=== PATIENT | female | born 1925 | race Caucasian/White ===

== ENCOUNTER 2017-01-11 12:23 | Observation (INO) | payer MEDICARE, BC ==
[2017-01-11 12:56] LABS: Hematocrit 46.8 % (37.0-47.0); Hemoglobin 15.8 gm/dL (12.5-16.0); Mean Cell Volume 92.3 fl (78-100); Mean Corpuscular Hemoglobin 31.2 pg (27-31); Mean Corpuscular Hgb Conc 33.8 g/dl (32-36); Neutrophil # 6.7 K/mm3 (1.3-6.0); Neutrophil % 66.9 % (42-75.0); Platelet Count 257 K/mm3 (150-450); Red Blood Count 5.07 M/mm3 (4.2-5.4); Red Cell Distribution Width 13.4 % (11.5-14.0)
[2017-01-11 13:08] LABS: Anion Gap 13.8 mmol/L (6.8-13.8); BUN/Creatinine Ratio 21.4 (9.0-21.6); Bilirubin, Total 0.7 mg/dL (0.0-1.1); Ca. Corrected For Albumin 9.5 mg/dL (8.4-10.2); Calcium * 9.8 mg/dL (7.9-10.9); Carbon Dioxide 28.2 mmol/L (24-32.6); Total Protein 8.3 gm/dL (6.2-8.2)
[2017-01-11 13:54] LABS: Urine Bilirubin Negative (NEGATIVE); Urine Blood Negative /ul (NEGATIVE); Urine Ketone 5 mg/dL (NEGATIVE); Urine Nitrite Negative (NEGATIVE); Urine Protein Negative (NEGATIVE); Urine Urobilinogen Normal (NORMAL)
[2017-01-11 14:04] LABS: Urine Appearance Clear; Urine Bacteria TRACE; Urine Color Yellow; Urine RBC TRACE /hpf (0-5); Urine WBC 0-5 /hpf (0-5)
[2017-01-11] MEDS ORDERED: NORMAL SALINE 1,000 ML IV ONE (14:26)
[2017-01-11 14:43] LABS: Troponin I Less than 0.017 ng/ml (0.00-0.10)
[2017-01-11 14:49] LABS: CK Total * 117 U/L (0-259)
--- NOTE | 2017-01-11 14:50 | ERNOTE ---
Medical Problem HPI - General Chief Complaint: General Assessment Time Seen by Provider: 01/11/17 12:25 Source: patient, family - history per daughter as well Exam Limitations: no limitations - Immun/Allergies/Home Medications Immunizations: IMMUNIZATION HX Immunizations Up to Date Yes History of Influenza Vaccine Yes Hx Pneumococcal Vaccination Yes Allergies/Adverse Reactions: Allergies amoxicillin [Amoxicillin] Allergy (Verified 01/11/17 12:56) brimonidine Allergy (Verified 01/11/17 12:56) dorzolamide [Dorzolamide] Allergy (Verified 01/11/17 12:56) Penicillins Allergy (Verified 01/11/17 12:56) Home Medications: HOME MEDICATIONS Aspirin [Aspirin Enteric Coated] 81 mg PO DAILY 08/29/14 [Last Taken Unknown] Calcium Carbonate [Caltrate 600] 1,200 mg PO DAILY 08/29/14 [Last Taken Unknown] Hydrochlorothiazide [Hydrodiuril] 25 mg PO Q48H 08/29/14 [Last Taken Unknown] Potassium Chloride [Klor-Con 10] 10 meq PO DAILY 08/29/14 [Last Taken Unknown] Preservision Areds Tablet 2 cap PO DAILY 08/29/14 [Last Taken Unknown] Timolol 1 drop OP DAILY 08/29/14 [Last Taken Unknown] Travatan Z 1 drop OP DAILY 08/29/14 [Last Taken Unknown] - History of Present History Narrative: pt had cold symptoms last week however this week she feels very very tired. She presented to the office of Dr. Coy this morning where a urine was collected however she was so lethargic and she had a rapid heart rate she was sent to the emergency department. When the patient arrived to the emergency room she had atrial fibrillation and felt weak. She denied any shortness of breath cough congestion however she did state that she had occasional dysuria over the past week. She also had frequent urination over the past 24 hours. Review of Systems - Review of Systems Constitutional: Present: weakness, fatigue, malaise EYE: Present: no symptoms reported ENT: Present: no symptoms reported Respiratory: Present: no symptoms reported Cardiology: Present: See HPI, other Gastrointestinal/Abdominal: Present: no symptoms reported Genitourinary: Present: See HPI Musculoskeletal: Present: no symptoms reported Skin: Present: no symptoms reported - Patient's Past Medical History Patient History - Medical: Anemia, Anxiety, Depression, GERD, Glaucoma, Osteoporosis Patient History - Cardiac/Respiratory: Hypertension Patient History - Cancer: No Hx of Cancer Patient History - Surgical Procedures: Appendectomy, Colonoscopy, , Hysterectomy, Total Hip Replacement Patient History - Other: None LMP (females 10-50): Menopausal - Social History Living Situations: home Abuse History: No History of abuse Psych History: Hx of Anxiety Smoking Status: Never smoker Alcohol Use: none Drug Use: none - Immunizations Immunizations Up to Date: Yes Hx Pneumococcal Vaccination: Yes History of Influenza Vaccine: Yes Physical Exam - Physical Exam General Appearance: Present: wd/wn, no apparent distress Head Exam: Present: normal inspection, no evidence of injury Neck: Present: normal inspection, nontender Respiratory: Present: no respiratory distress, normal breath sounds, no accessory muscle use, chest nontender, lungs clear Cardiovascular/Chest: Present: irregularly irregular, other - initially patient had an irregular heart rate had atrial flutter at a rapid ventricular response however prior to the second EKG within the following 5 minutes the patient converted into sinus rhythm. And has remained in sinus rhythm since. Gastrointestinal/Abdominal: Present: normal bowel sounds, nontender, nondistended, soft, no organomegaly Extremity Exam: Present: normal inspection, normal range of motion Neurological Exam: Present: alert, oriented, normal mood/affect, no motor/ sensory deficits ED Progress - Results and Orders Patient's Lab Results:: I have reviewed the patient's lab results. - Vital Signs Patient's Vital Signs:: I have reviewed the patient's vital signs. Vital Signs: Vital Signs 01/11/17 01/11/17 01/11/17 12:34 12:51 13:05 Temperature 36.3 C L Pulse Rate 142 H 146 H Respiratory 16 23 H Rate Blood Pressure 133/74 94/75 154/75 O2 Sat by Pulse 91 100 100 Oximetry 01/11/17 01/11/17 01/11/17 13:30 13:45 14:00 Temperature Pulse Rate 135 H 146 H 72 Respiratory 17 26 H 25 H Rate Blood Pressure 101/85 138/72 135/60 O2 Sat by Pulse 95 Oximetry 01/11/17 01/11/17 01/11/17 14:15 14:30 14:41 Temperature Pulse Rate 77 71 75 Respiratory 26 H 21 H 16 Rate Blood Pressure 144/46 148/86 O2 Sat by Pulse Oximetry - X-Ray X-Ray #1 X-Ray: chest - Progress/Reassessment Chief Complaint: General Assessment Plan - Plan Plan: This patient has new onset atrial fibrillation in addition to the fact that she is very very weak. Her remainder of her tests are within normal limits this time due to patient's extreme weakness and inability to go home Dr. Barakat with consultation in regards to new onset atrial fibrillation which was paroxysmal, and patient's continued weakness and patient will be admitted for weakness. Departure - Departure Clinical Impression: New onset atrial fibrillation, Weakness Disposition: [facility] Condition: Fair Referrals: Josue Coy MD [Primary Care Provider] -
[2017-01-11 15:30] LABS: TSH * 4.078 uIU/mL (0.358-3.74)
--- NOTE | 2017-01-11 16:08 | HP ---
Chief Complaint - Chief Complaint Date of Service: 01/11/17 Time of Service: 16:02 Chief Complaint: weakness History of Present Illness: 89-year-old white female was admitted because of weakness she was initially seen at the walk-in clinic complaining of weakness and urinary problem she was found out to be tachycardic so she was sent to the emergency room. At the emergency room she was found out to be in atrial fibrillation with rapid ventricular response she converted spontaneously to normal sinus rhythm. She was given 1 L of IV saline by the emergency room. - Patient's Past Medical History Patient History - Medical: Anemia, Anxiety, Depression, GERD, Glaucoma, Osteoporosis Patient History - Cardiac/Respiratory: Hypertension Patient History - Cancer: No Hx of Cancer Patient History - Surgical Procedures: Appendectomy, Colonoscopy, , Hysterectomy, Total Hip Replacement Patient History - Other: None LMP (females 10-50): Menopausal - Family History Mother Family History - Medical: Family History - Cardiac/Respiratory: No pertinent hx Father Family History - Medical: , No pertinent hx - Social History Living Situations: other Abuse History: No History of abuse Psych History: Hx of Anxiety Smoking Status: Never smoker Have you smoked in the past 12 months: No Do you dip or chew tobacco: No Alcohol Use: none Drug Use: none - Immunizations Immunizations Up to Date: Yes Hx Pneumococcal Vaccination: Yes History of Influenza Vaccine: Yes Review Of Systems (GEN) - Review of Systems EENTM: Present: No Symptoms Reported Respiratory: Present: No Symptoms Reported Cardiac: Present: No Symptoms Reported Abdominal: Present: No Symptoms Reported Genitourinary: Present: Frequency Musculoskeletal: Present: No Symptoms Reported Neurological: Present: Weakness Skin: Present: No Symptoms Reported Immunizations: IMMUNIZATION HX Immunizations Up to Date Yes History of Influenza Vaccine Yes Hx Pneumococcal Vaccination Yes Allergies/Adverse Reactions: Allergies Allergy/AdvReac Type Severity Reaction Status Date / Time amoxicillin [Amoxicillin] Allergy Verified 01/11/17 12:56 brimonidine Allergy Verified 01/11/17 12:56 dorzolamide [Dorzolamide] Allergy Verified 01/11/17 12:56 Penicillins Allergy Verified 01/11/17 12:56 Home Medications: HOME MEDICATIONS Aspirin [Aspirin Enteric Coated] 81 mg PO DAILY 08/29/14 [Last Taken Unknown] Calcium Carbonate [Caltrate 600] 1,200 mg PO DAILY 08/29/14 [Last Taken Unknown] Hydrochlorothiazide [Hydrodiuril] 25 mg PO Q48H 08/29/14 [Last Taken Unknown] Potassium Chloride [Klor-Con 10] 10 meq PO DAILY 08/29/14 [Last Taken Unknown] Preservision Areds Tablet 2 cap PO DAILY 08/29/14 [Last Taken Unknown] Timolol 1 drop OP DAILY 08/29/14 [Last Taken Unknown] Travatan Z 1 drop OP DAILY 08/29/14 [Last Taken Unknown] Exam - Exam Vital Signs: Vital Signs - Last Taken Temp 36.5 C 01/11/17 15:18 Pulse 87 01/11/17 15:18 Resp 20 01/11/17 15:18 BP 158/64 01/11/17 15:18 Pulse Ox 99 01/11/17 15:18 Constitutional: Present: Alert, Oriented x3, Cooperative ENT Exam: Present: normal ENT inspection Neck: Present: full range of motion, normal inspection Back Exam: Present: normal inspection Respiratory: Present: chest non-tender, lungs clear, normal breath sounds Cardiovascular/Chest: Present: normal peripheral pulses, regular rate, rhythm, no chest tenderness, systolic murmur Abdomen: Present: Normal bowel sounds, soft, nontender /Rectal: Present: Exam deferred Extremity: Present: normal range of motion, no pedal edema Skin Exam: Present: normal color Neurologic: Present: brim stiffener II-XII nml as tested Appearance: Present: appropriate appearance Diagnostic Studies: Laboratory Results WBC 10.0 K/mm3 (4.0-10.5) 01/11/17 12:52 RBC 5.07 M/mm3 (4.2-5.4) 01/11/17 12:52 Hgb 15.8 gm/dL (12.5-16.0) 01/11/17 12:52 Hct 46.8 % (37.0-47.0) 01/11/17 12:52 MCV 92.3 fl (78-100) 01/11/17 12:52 MCH 31.2 pg (27-31) H 01/11/17 12:52 MCHC 33.8 g/dl (32-36) 01/11/17 12:52 RDW 13.4 % (11.5-14.0) 01/11/17 12:52 Plt Count 257 K/mm3 (150-450) 01/11/17 12:52 MPV 9.0 fl (6.0-9.5) 01/11/17 12:52 Immature Gran % (Auto) 0.30 % (0.001-0.429) 01/11/17 12:52 Immature Gran # (Auto) 0.03 K/mm3 (0.000-0.0310) 01/11/17 12:52 Neutrophils % 66.9 % (42-75.0) 01/11/17 12:52 Lymphocytes % 18.4 % (20-51) L 01/11/17 12:52 Monocytes % 9.7 % (0.0-9) H 01/11/17 12:52 Eosinophils % 3.8 % (0.0-3.0) H 01/11/17 12:52 Basophils % 0.9 % (0.0-1.0) 01/11/17 12:52 Nucleated RBC % 0.0 k/mm3 (0-1) 01/11/17 12:52 Neutrophils # 6.7 K/mm3 (1.3-6.0) H 01/11/17 12:52 Lymphocytes # 1.8 k/mm3 (1.5-3.5) 01/11/17 12:52 Monocytes # 1.0 k/mm3 (0.0-1.0) 01/11/17 12:52 Eosinophils # 0.4 k/mm3 (0.0-0.7) 01/11/17 12:52 Absolute Basophils 0.1 k/mm3 (0.0-0.1) 01/11/17 12:52 Sodium 139 mmol/L (132-142) 01/11/17 12:52 Plasma Sodium 139 mmol/L (130-142) 01/11/17 12:52 Potassium 4.0 mmol/L (3.4-4.6) 01/11/17 12:52 Chloride 101 mmol/L (97-106) 01/11/17 12:52 Carbon Dioxide 28.2 mmol/L (24-32.6) 01/11/17 12:52 Anion Gap 13.8 mmol/L (6.8-13.8) 01/11/17 12:52 BUN 21 mg/dL (3-23) 01/11/17 12:52 Creatinine 0.98 mg/dL (0.4-1.4) 01/11/17 12:52 Est GFR (Non-Af Amer) 57 mL/min (60-130) L 01/11/17 12:52 BUN/Creatinine Ratio 21.4 (9.0-21.6) 01/11/17 12:52 Random Glucose 112 mg/dL (70-110) H 01/11/17 12:52 Lactic Acid, Venous 1.4 mmol/L (0.4-1.9) 01/11/17 12:52 Calcium 9.8 mg/dL (7.9-10.9) 01/11/17 12:52 Calcium Adj for Albumin 9.5 mg/dL (8.4-10.2) 01/11/17 12:52 Total Bilirubin 0.7 mg/dL (0.0-1.1) 01/11/17 12:52 AST 27 U/L (0-48) 01/11/17 12:52 ALT 22 U/L (19-67) 01/11/17 12:52 Alkaline Phosphatase 101 U/L (50-170) 01/11/17 12:52 Creatine Kinase 117 U/L (0-259) 01/11/17 12:49 CK-MB (CK-2) 2.0 ng/mL (0.0-9.0) 01/11/17 12:49 Troponin I Less than 0.017 ng/ml (0.00-0.10) 01/11/17 12:49 B-Natriuretic Peptide 2469 pg/mL (5-550) H 01/11/17 12:49 Total Protein 8.3 gm/dL (6.2-8.2) H 01/11/17 12:52 Albumin 4.0 gm/dl (3.4-5.0) 01/11/17 12:52 Procalcitonin Less than 0.05 ng/mL (0.05-0.50) L 01/11/17 12:52 TSH 4.078 uIU/mL (0.358-3.74) H 01/11/17 12:49 Urine Color Yellow 01/11/17 12:05 Urine Appearance Clear 01/11/17 12:05 Urine pH 7.0 pH (5.0-7.0) 01/11/17 12:05 Ur Specific [place] 1.010 SP.GR. (1.005-1.010) 01/11/17 12:05 Urine Protein Negative mg/dL (NEGATIVE) 01/11/17 12:05 Urine Glucose (UA) Negative mg/dL (NEGATIVE) 01/11/17 12:05 Urine Ketones 5 mg/dL (NEGATIVE) 01/11/17 12:05 Urine Blood Negative /ul (NEGATIVE) 01/11/17 12:05 Urine Nitrate Negative (NEGATIVE) 01/11/17 12:05 Urine Bilirubin Negative mg/dl (NEGATIVE) 01/11/17 12:05 Urine Urobilinogen Normal EU/dl (NORMAL) 01/11/17 12:05 Ur Leukocyte Esterase Negative /ul (NEGATIVE) 01/11/17 12:05 Urine RBC Trace /hpf (0-5) 01/11/17 12:05 Urine WBC 0-5 /hpf (0-5) 01/11/17 12:05 Ur Epithelial Cells Trace /hpf (0-5) 01/11/17 12:05 Urine Bacteria Trace (NONE) 01/11/17 12:05 Urine Culture Comments Culture to follow 01/11/17 12:05 Assessment/Plan - Assessment/Plan (1) New onset atrial fibrillation Assessment: She will be started on Coreg 6.25 mg twice a day for rate control We'll repeat echocardiogram because of aortic stenosis and congestive heart failure Problem: Acute (2) Weakness Problem: Acute
[2017-01-11] MEDS: CARVEDILOL 6.25 MG TABLET PO SCH (21:59)
[2017-01-12 07:06] VITALS: BP 140/76
--- NOTE | 2017-01-12 08:31 | DS ---
(1) New onset atrial fibrillation Problem: Acute (2) Weakness Problem: Acute Description of Stay: 89-year-old white female was admitted because of weakness she had an episodes of atrial fibrillation with rapid ventricular response at she converted spontaneously to normal sinus rhythm and was admitted to observation. I started her on Coreg 6.25 mg twice a day was observed overnight she remained to be in normal sinus rhythm with normal heart rate. Her TSH is slightly elevated at 4. Holter monitor was ordered DC show and we will regarding anticoagulation will be decided after I had seen the Holter monitor Procedures Performed: none Discharge Disposition: Home self care Disposition: Home self-care Condition: Fair Discharge Activity: Activity as tolerated Discharge Diet: General/regular food Referrals: Josue Coy MD [Primary Care Provider] - Additional Patient Instructions (free text): TCM appointment at discharge. Call Rebeca at x [phone]. Follow up with Dr. Coy in 1 week Prescriptions (Any new or edited meds): Carvedilol [Coreg] 6.25 mg PO BID #60 tablet Complete Home Medications List: Complete Home Medication List: Aspirin [Aspirin Enteric Coated] 81 mg PO DAILY 08/29/14 Calcium Carbonate [Caltrate 600] 1,200 mg PO DAILY 08/29/14 Hydrochlorothiazide [Hydrodiuril] 25 mg PO Q48H 08/29/14 Potassium Chloride [Klor-Con 10] 10 meq PO DAILY 08/29/14 Preservision Areds Tablet 2 cap PO DAILY 08/29/14 Timolol 1 drop OP DAILY 08/29/14 Travatan Z 1 drop OP DAILY 08/29/14 Aspirin [Aspirin Enteric Coated] 81 mg PO DAILY tablet. 01/12/17 Carvedilol [Coreg] 6.25 mg PO BID #60 tablet 01/12/17 Amb Orders for Discharge: T3, Free Time Frame: 01/17/17, Location: Determined By Patient T4 Free * Time Frame: 01/17/17, Location: Determined By Patient TSH * Time Frame: 01/17/17, Location: Determined By Patient
[2017-01-12] MEDS ORDERED: HYDROCHLOROTHIAZIDE 25 MG TABLET PO SCH (09:00)
[2017-01-12] MEDS ORDERED: CALCIUM CARBONATE 500 MG TAB.CHEW PO SCH (09:00)
[2017-01-12] MEDS ORDERED: POTASSIUM CHLORIDE 10 MEQ TABLET.SA PO SCH (09:00)
[2017-01-12] MEDS ORDERED: TIMOLOL MALEATE 50 DROP BTL OP SCH (09:00)
[2017-01-12] MEDS ORDERED: TRAVOPROST 25 DROP BTL OP SCH (09:00)
[2017-01-12] MEDS ORDERED: ASPIRIN 81 MG TABLET.DR PO SCH (09:00)
[2017-01-12] MEDS: CARVEDILOL 6.25 MG TABLET PO SCH (09:13)
== END 2017-01-12 13:01 | disposition home or self-care (01) ==
LOC: ER 12:23 → MS 14:49
PROVIDERS: ADMIT Internal Medicine; ATTEND Internal Medicine
DX: I48.0 Paroxysmal atrial fibrillation (principal); R53.1 Weakness; R30.0 Dysuria; D64.9 Anemia, unspecified; K21.9 Gastro-esophageal reflux disease without esophagitis; I10 Essential (primary) hypertension; M81.0 Age-related osteoporosis without current pathological fracture
CPT/HCPCS: 36415; 71020; 80053; 81001; 82550; 82553; 83605; 83880; 84145; 84443; 84484; 85025; 93005; 94660; 99283; G0378